=== PATIENT | female | born 1965 | race Two or more races ===

== ENCOUNTER → 2019-11-20 | Outpatient (CLI) | payer OTHER ==
[2018-01-24 13:00] VITALS: BP 146/70
--- NOTE | 2019-11-20 16:52 | RAD ---
MR of the right shoulder HISTORY: Right shoulder pain, no known injury. Pain for 4 months. TECHNIQUE: Routine multiplanar sequences are obtained. FINDINGS: Acromioclavicular joint is mildly degenerative with inferior osteophytes. Full-thickness rupture most of the supraspinatus and all of the infraspinatus tendon with severe retraction, about 3.5 cm. There is a small amount of anterior supraspinatus tendon fibers which maintain some continuity. Trace subdeltoid bursal effusion. Subscapularis tendon demonstrates mild partial tearing. [id number] muscle atrophy. There is a partially visualized fatty mass within the infraspinatus, or possibly just posterior to the infraspinatus, compatible with a lipoma. Small glenohumeral joint effusion. Signal within the superior labrum compatible with degenerative tear. Biceps tendinosis. Slight medial shift of the tendon at the upper bicipital groove. No acute fracture. No aggressive bone destruction. IMPRESSION: 1. Large rotator cuff tear. Complete full-thickness rupture of most of the supraspinatus and all of the infraspinatus tendon with retraction. Partial subscapularis tendon tear. 2. Degenerative tear of the superior labrum. 3. Biceps tendinosis with slight medial shift. 4. Partially visualized fatty mass at the posterior infraspinatus, compatible with a lipoma. Electronically signed by: Roel Gomez MD (11/20/2019 4:49 PM) [id number]
== END | disposition home or self-care (01) ==
LOC: MRI 14:07
PROVIDERS: ATTEND Social Worker
DX: S43.431A Superior glenoid labrum lesion of right shoulder, initial encounter (principal); S46.011A Strain of muscle(s) and tendon(s) of the rotator cuff of right shoulder, initial encounter; M25.811 Other specified joint disorders, right shoulder; M25.711 Osteophyte, right shoulder; M25.411 Effusion, right shoulder; X58.XXXA Exposure to other specified factors, initial encounter; Y93.89 Activity, other specified; Y92.89 Other specified places as the place of occurrence of the external cause; Y99.8 Other external cause status
CPT/HCPCS: 73221

== ENCOUNTER 2022-01-31 12:29 | Emergency (ER) | payer SELFPAY ==
[~2022-01-31] VITALS: Ht 165.1 cm; Wt 100.0 kg
[2022-01-31] MEDS ORDERED: CONTRAST GIVEN. MC PRN (13:30)
[2022-01-31] MEDS ORDERED: KETOROLAC 15 MG/ML VIAL. IVP ONE (13:30)
[2022-01-31] MEDS ORDERED: IOHEXOL 300 MG/ML 100ML VIAL. IV ONE (13:30)
[2022-01-31 13:55] LABS: BASO # 0.1 x10^3/uL (0.0-0.2); BASO % 1 % (0-3); EOS # 0.2 x10^3/uL (0.0-0.7); EOS % 3 % (0-3); HEMATOCRIT 34.6 % (36.0-47.0); HEMOGLOBIN 11.5 g/dL (12.0-15.5); LYMPH # 2.4 x10^3/uL (1.0-4.8); LYMPH % 33 % (24-48); MEAN CORPUSCULAR HEMOGLOBIN 28 pg (25-35); MEAN CORPUSCULAR HGB CONC 33 g/dL (31-37); MEAN CORPUSCULAR VOLUME 85 fL (79-100); MONO # 0.6 x10^3/uL (0.0-1.1); MONO % 8 % (0-9); NEUT # 4.1 x10^3/uL (1.8-7.7); NEUT % 55 % (31-73); PLATELET COUNT 334 x10^3/uL (140-400); RED BLOOD COUNT 4.07 x10^6/uL (3.50-5.40); RED CELL DISTRIBUTION WIDTH 14.5 % (11.5-14.5); WHITE BLOOD COUNT 7.4 x10^3/uL (4.0-11.0)
[2022-01-31 14:10] LABS: CALCIUM 9.1 mg/dL (8.5-10.1); CREATININE 0.6 mg/dL (0.6-1.0); GFR 103.4; POTASSIUM 3.7 mmol/L (3.5-5.1)
[2022-01-31 14:29] VITALS: BP 153/70
--- NOTE | 2022-01-31 14:50 | RAD ---
CT maxillofacial with contrast HISTORY: Right lower jaw pain after extraction Axial helical images were obtained of the face including the paranasal sinuses orbits and mandible af ter administration of 75 cc Omni 300 and axial coronal and sagittal reconstruction was performed. FINDINGS: There is chronic deviation of the nasal septum to the right. This middle complexes are patent. There is a small polyp versus retention cyst in the floor the left maxillary sinus. The remaining paranasal sinuses are clear. The visualized osseous structures are grossly intact. There is beam hardening artifact due to metalli c fillings. IMPRESSION: No acute findings. End of impression PQRS Compliance Statement: One or more of the following individualized dose reduction techniques were utilized for this examinat ion: 1. Automated exposure control 2. Adjustment of the mA and/or kV according to patient size 3. Use of iterative reconstruction technique Electronically signed by: Hunter Tate III, MD (01/31/2022 2:47 PM) [facility]
--- NOTE | 2022-01-31 14:58 | PHYS DOC ---
Past Medical History Past Medical History: Arthritis, Diabetes-Type II, High Cholesterol Past Surgical History: No Surgical History Additional Past Surgical Histo: RIGHT KNEE REPLACEMENT Smoking Status: Never Smoker Alcohol Use: None Drug Use: None General Adult EDM: Chief Complaint: DENTAL PROBLEM HPI: HPI: Patient is a 56-year-old female who presents today with right lower jaw pain. Patient states she went to [facility] recently and had a tooth extracted due to dental caries, she said that she has had increased pain over the last couple of days, and she called the 24-hour line that [facility] gave her to call and they instructed her to come to the emergency department for further evaluation and management. Patient denies chest pain, shortness of ingrid ath, any difficulty swallowing or fever and chills. Patient is Citizen [place]-speaking only and interpretive services were used for the HPI and review of systems. Patient does have a history of diabetes. Review of Systems: Review of Systems: Constitutional: Denies fever or chills. [] Eyes: Denies change in visual acuity. [] HENT: Right lower jaw pain denies nasal congestion or sore throat. [] Respiratory: Denies cough or shortness of breath. [] Cardiovascular: Denies chest pain or edema. [] GI: Denies abdominal pain, nausea, vomiting, bloody stools or diarrhea. [] : Denies dysuria. [] Musculoskeletal: Denies back pain or joint pain. [] Integument: Denies rash. [] Neurologic: Denies headache, focal weakness or sensory changes. [] Endocrine: Denies polyuria or polydipsia. [] Lymphatic: Denies swollen glands. [] Psychiatric: Denies depression or anxiety. [] Heart Score: C/O Chest Pain: No Risk Factors: Risk Factors: DM, Current or recent (<one month) smoker, HTN, HLP, family history of CAD, obesity. Risk Scores: Score 0 - 3: 2.5% MACE over next 6 weeks - Discharge Home Score 4 - 6: 20.3% MACE over next 6 weeks - Admit for Clinical Observation Score 7 - 10: 72.7% MACE over next 6 weeks - Early Invasive Strategies Current Medications: Current Medications Medications (Trade) Dose Ordered Sig/Precious Start Time Stop Time Status Last Admin Dose Admin Info (CONTRAST GIVEN -- Rx MONITORING) 1 each PRN DAILY PRN 01/31/22 13:30 02/02/22 13:29 Iohexol (Omnipaque 300 Mg/ml) 75 ml 1X ONCE 01/31/22 13:30 01/31/22 13:31 DC Ketorolac Tromethamine (Toradol 15mg Vial) 15 mg 1X ONCE 01/31/22 13:30 01/31/22 13:31 DC 01/31/22 14:11 15 MG Allergies: Allergies: Allergies Coded Allergies Type Severity Reaction Last Updated Verified No Known Drug Allergies 01/24/18 No Physical Exam: PE: Constitutional: Well developed, well nourished, no acute distress, non-toxic appearance. [] HENT: Right lower jaw it was noted the molar was missing with a cavity noted it was pale in color, no bleeding, no drainage, area was swollen and tender to touch. Patient was able to swallow own saliva, airway was open tonsils were 1+. Eyes: PERRLA, EOMI, conjunctiva normal, no discharge. [] Neck: Normal range of motion, no tenderness, supple, no stridor. [] Cardiovascular:Heart rate regular rhythm, no murmur [] Lungs & Thorax: Bilateral breath sounds clear to auscultation [] Abdomen: Bowel sounds normal, soft, no tenderness, no masses, no pulsatile masses. [] Skin: Warm, dry, no erythema, no rash. [] Back: No tenderness, no CVA tenderness. [] Extremities: No tenderness, no cyanosis, no clubbing, ROM intact, no edema. [] Neurologic: Alert and oriented X 3, normal motor function, normal sensory function, no focal deficits noted. [] Psychologic: Affect normal, judgement normal, mood normal. [] Current Patient Data: Labs: Laboratory Tests Test 01/31/22 13:47 White Blood Count 7.4 x10^3/uL (4.0-11.0) Red Blood Count 4.07 x10^6/uL (3.50-5.40) Hemoglobin 11.5 g/dL (12.0-15.5) L Hematocrit 34.6 % (36.0-47.0) L Mean Corpuscular Volume 85 fL (79-100) Mean Corpuscular Hemoglobin 28 pg (25-35) Mean Corpuscular Hemoglobin Concent 33 g/dL (31-37) Red Cell Distribution Width 14.5 % (11.5-14.5) Platelet Count 334 x10^3/uL (140-400) Neutrophils (%) (Auto) 55 % (31-73) Lymphocytes (%) (Auto) 33 % (24-48) Monocytes (%) (Auto) 8 % (0-9) Eosinophils (%) (Auto) 3 % (0-3) Basophils (%) (Auto) 1 % (0-3) Neutrophils # (Auto) 4.1 x10^3/uL (1.8-7.7) Lymphocytes # (Auto) 2.4 x10^3/uL (1.0-4.8) Monocytes # (Auto) 0.6 x10^3/uL (0.0-1.1) Eosinophils # (Auto) 0.2 x10^3/uL (0.0-0.7) Basophils # (Auto) 0.1 x10^3/uL (0.0-0.2) Sodium Level 143 mmol/L (136-145) Potassium Level 3.7 mmol/L (3.5-5.1) Chloride Level 105 mmol/L (98-107) Carbon Dioxide Level 29 mmol/L (21-32) Anion Gap 9 (6-14) Blood Urea Nitrogen 10 mg/dL (7-20) Creatinine 0.6 mg/dL (0.6-1.0) Estimated GFR (Cockcroft-Gault) 103.4 Glucose Level 86 mg/dL (70-99) Calcium Level 9.1 mg/dL (8.5-10.1) Laboratory Tests 01/31/22 13:47 Laboratory Tests 01/31/22 13:47 Vital Signs: Vital Signs Date Time Temp Pulse Resp B/P (MAP) Pulse Ox O2 Delivery O2 Flow Rate FiO2 01/31/22 16:35 72 20 97 Room Air 01/31/22 14:29 75 20 153/70 (97) Room Air 01/31/22 14:06 73 18 153/82 (105) 98 Room Air 01/31/22 12:45 98.0 84 16 137/79 (98) 98 Room Air 98.0 Vital Signs Date Time Temp Pulse Resp B/P (MAP) Pulse Ox O2 Delivery O2 Flow Rate FiO2 01/31/22 14:06 73 18 153/82 (105) 98 Room Air 01/31/22 12:45 98.0 98.0 EKG: EKG: [] Radiology/Procedures: Radiology/Procedures: REASON: RIGHT LOWER JAW PAIN, AFTER EXTRACTION, OMNI 300 75 ML IV PROCEDURE: CT MAXILLOFACIAL W/CONTRAST CT maxillofacial with contrast HISTORY: Right lower jaw pain after extraction Axial helical images were obtained of the face including the paranasal sinuses orbits and mandible after administration of 75 cc Omni 300 and axial coronal and sagittal reconstruction was performed. FINDINGS: There is chronic deviation of the nasal septum to the right. This middle complexes are patent. There is a small polyp versus retention cyst in the floor the left maxillary sinus. The remaining paranasal sinuses are clear. The visualized osseous structures are grossly intact. There is beam hardening artifact due to metallic fillings. IMPRESSION: No acute findings. End of impression PQRS Compliance Statement: One or more of the following individualized dose reduction techniques were utilized for this examination: 1. Automated exposure control 2. Adjustment of the mA and/or kV according to patient size 3. Use of iterative reconstruction technique Electronically signed by: Hunter Tate III, MD (01/31/2022 2:47 PM) [facility] [] Course & Med Decision Making: Course & Med Decision Making Pertinent Labs and Imaging studies reviewed. (See chart for details) 1525 patient states that her pain has improved with the Toradol that was given, patient continues to be able to swallow or have any problems with airway issues at this time. I reviewed radiological and laboratory results with patient did inform them there was no acute processes at this time, I will place the patient on opioid medication to help with pain relief I will also place the patient on some oral antibiotic as well and I have instructed them to follow-up with [facility] clinic on Wednesday for further evaluation and management of this pain. I also advised ice packs to that area 20 minutes on 3-4 times daily and to rinse the mouth after eating or drinking anything to avoid any debris from getting in the wound. They verbalized understanding of this and are agreeable with the plan of care Amy Disclaimer: Amy Disclaimer: This electronic medical record was generated, in whole or in part, using a voice recognition dictation system. Departure Departure Impression: Primary Impression: Pain, dental Disposition: HOME / SELF CARE / HOMELESS Condition: STABLE Referrals: FRANCISCO PRINCE MD (PCP) Patient Instructions: Dental Pain Additional Instructions: Hydrocodone take 1 to 2 tablets every 6 hours as needed for pain, use with caution may cause drowsiness and constipation Motrin 600 mg take 1 tablet every 6 hours x48 hours and then as needed, take with food may cause stomach upset if taken on an empty stomach. Clindamycin 300 mg every 8 hours for 10 days, start on February 01, 2022 Ice pack to the affected area 20 minutes on 3-4 times daily Rinse mouth after eating or drinking anything to help with avoiding any debris into the wound Return to the emergency department should you have increased swelling, drainage from the wound, development of a fever. Follow-up with the [facility] dental clinic on Wednesday for further evaluation and management of this pain. Scripts Hydrocodone Bit/Acetaminophen (HYDROCODONE-APAP 5-325 ) 1 Tab Tablet 2 TAB PO PRN Q6HRS PRN for PAIN, #30 TAB 0 Refills Prov: FREDDIE FLOREZ [employer] 01/31/22 Ibuprofen (IBUPROFEN) 600 Mg Tablet 600 MG PO PRN Q6HRS PRN for INFLAMMATION, #30 TAB Prov: FREDDIE FLOREZ [employer] 01/31/22 Clindamycin Hcl (CLINDAMYCIN HCL) 300 Mg Capsule 1 CAP PO TID, #21 CAP Prov: FREDDIE FLOREZ [employer] 01/31/22 FREDDIE FLOREZ [employer] January 31, 2022 14:58
[2022-01-31] MEDS ORDERED: CLIN-94 PO (15:32)
[2022-01-31] MEDS ORDERED: IBUP-1007 PO (15:32)
[2022-01-31] MEDS ORDERED: HYDR-2761 PO (15:32)
[2022-01-31] MEDS ORDERED: cefTRIAXone IV Push 1 GM VIAL. IVP ONE (16:00)
== END 2022-01-31 16:53 | disposition home or self-care (01) ==
LOC: ER 12:29
DX: K08.89 Other specified disorders of teeth and supporting structures (principal); R51.9 Headache, unspecified; E11.9 Type 2 diabetes mellitus without complications; E78.00 Pure hypercholesterolemia, unspecified
CPT/HCPCS: 36415; 70487; 80048; 85025; 96374; 96375; 99285; J0696; J1885